=== PATIENT | female | born 1960 | race Caucasian/White ===

== ENCOUNTER → 2016-12-12 | Outpatient (CLI) | payer MEDICARE ==
[~2016-12-12] MED LIST: ALBUTEROL-200 PUFFS/ IH; CALTRATE 600 +1 TA1 PO; CALTRATE 600+D1 TAB PO; CARAFATE 1GM TAB1 GM PO; CARAFATE1 GM PO; CENTRUM SILVER1 TA2 PO; CENTRUM SILVER1 TAB PO; NAPROSYN 500MG500 MG PO; OXYGEN4 IH; PRAVACHOL40 MG PO; PREDNICOT10 MG PO; PREDNISONE 10MG10 MG PO; PREVACID 30MG C30 M1 PO; PRILOSEC20 M1 PO; PROBIOTIC FORMU1 CA2 PO; SPIRIVA HA1 PUFF/INH IH; SYMBICORT1 AE1 IH
== END ==
LOC: RT 11-17 10:00
DX: J43.9 Emphysema, unspecified (principal)

== ENCOUNTER 2017-02-09 19:22 | Inpatient (IN) | payer MEDICARE ==
[~2017-02-09] VITALS: Ht 149.9 cm; Wt 57.8 kg
[2017-02-09 19:22] VITALS: BP 127/76
[~2017-02-09 19:22] MED LIST changes: -OXYGEN4 IH; -PRAVACHOL40 MG PO
[2017-02-09] MEDS ORDERED: PRAVACHOL40 MG PO (19:31)
[2017-02-09 19:49] LABS: LYMPH # 1.9 K/mm3 (0.7-4.5); LYMPH % 23.3 % (10-50.0)
--- NOTE | 2017-02-09 20:11 | Emergency Room Report ---
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 N Clinical Suspician of Infection? N Mental Status: 1 - Regular (Normal Baseline) Sepsis Risk:Low Sepsis Risk Have you (or family members/close friends) recently traveled outside the [place]? N If Yes, where/when: Have you had exposure to infectious disease within the past month? N TB? Other? Specify: Source patient, RN notes reviewed, family, EMS, old records Exam Limitations no limitations Comment pt with episodes of feeling faint with nausea and diaphoresis and had heartburn type pain - pt with 2 episodes - no known heart disease - no melena Cardiac Chest Pain Chest pain indicative of cardiac Yes Timing/Duration 1-3 hours, gone now Severity/Quality moderate, indigestion Location epigastric Chest Pain Radiation no radiation Activities at Onset light activity Nitro Today/Relief no nitro taken today Aspirin Treatment Today 325 mg x 1, provided by ED Beta bill treatment today no beta bill taken Cardiac risk factors + family history Prior Workup/Intervention no prior cardiac workup Timing/Duration this evening Severity moderate ALLERGIES Coded Allergies: amoxicillin (Intermediate, I-HIVES 12/12/16) Home Medications Reported Medications BUDESONIDE/FORMOTEROL FUMARATE (Symbicort 160-4.5 Mcg Inhaler) 2 PUFFS IH BID #1 INH Tiotropium [place] (Spiriva) 1 PUFF IH DAILY OMEPRAZOLE MAGNESIUM (Prilosec 20MG) 40 MG PO DAILY Sucralfate (Carafate Tab) 1 GM PO BID Albuterol (Albuterol-Hfa Inhaler) 2 PUFF IH QID Multivitamin, Minerals, And (Centrum Silver) 1 TAB PO DAILY CALCIUM CARBONATE/VITAMIN D3 (Caltrate 600 + D Tablet) 1 TAB PO DAILY Probiotic Formula 1 CAP PO DAILY Pravastatin Sodium (Pravachol) 40 MG PO QHS #30 History Medical History General CAD? No Angina: No [place]: No Hypertension? No Hyperlipidemia? Yes CHF? No DVT? No PE? No COPD? Yes Asthma? No Anemia? No GERD? Yes Gastric ulcers? No GI Bleed? No Hernia? No Thyroid Problems? No Hypothyroidism? No CVA? No Seizures? No Diabetes? No Renal Insuffiency? No End Stage Renal Disease? No UTI? Yes Stones? No GB Disease: Yes Nephritic Syndrome? No Asplenia? No Hepatitis? No Sickle Cell Disease? No Arthritis? No Migraines? No Cataracts? No Glaucoma? No MRSA? No HIV? No TB? No Anxiety? No Depression? No Cancer? No More? 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 Respiratory denies cough, denies shortness of breath, denies wheezing Cardiovascular see HPI, chest pain, denies palpitations, denies syncope, other Gastrointestinal denies abdominal pain, denies diarrhea, denies vomiting Genitourinary denies: dysuria, frequency, hesitancy, hematuria. Musculoskeletal denies back pain, denies joint pain, denies joint swelling, denies neck pain Skin denies rash Psychiatric/Neurological denies headache, denies seizure Physical Exam Vital Signs Vital Signs Date Time Temp Pulse Resp B/P Pulse O2 O2 Flow FiO2 Ox Delivery Rate 02/09 2025 98.4 91 18 136/90 96 02/10 2024 90 20 136/90 97 02/09 2013 98.4 83 20 170/109 97 02/09 1922 98.4 83 20 127/76 97 - WBC >12,000 or <4,000 or 10% bands? 2 or more SIRS Criteria Met? B/P:136/90 MAP:93 Creatinine >2.0? UA output<0.5ml/kg/hr for 2 hrs? Platelet count >100,000? Lactate >2.0mmol/1? INR >1.2 or PTT > than 60 sec? Evidence of Organ Dysfunction? Provider documented clinical suspician of infection? N Sepsis Criteria Count: 1 Sepsis Risk: Low Sepsis Risk General Appearance no apparent distress Eye Exam - bilateral eye PERRL, bilateral eye EOMI Ear, Nose, Throat normal ENT inspection Neck supple Respiratory Status No: respiratory distress. Lung Sounds bilateral: lungs clear. 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 No Results/Orders Laboratory Tests 02/09/171940: Sodium 140, Potassium 3.9, Chloride 102, Carbon Dioxide 32, BUN 11, Creatinine 0.9, Estimated Creat Clear 62, Estimated GFR (MDRD) 64, Glucose 113 H, Calcium 9.5, Total Bilirubin 0.5, AST 27, ALT 31, Alkaline Phosphatase 67, Creatine Kinase 188, CK-MB (CK-2) Rel Index 7.0 H, CK and CKMB Interp 13.2 *H, Troponin I 1.00 H, Total Protein 7.4, Albumin 3.7, Globulin 3.7 H, Albumin/Globulin Ratio 1.0 L, WBC 8.3, RBC 4.88, Hgb 15.0, Hct 44.7, MCV 91.6, RDW 13.1, Plt Count 196, MPV 6.2 L, Gran % 72.0, Gran # 6.0, Lymphocytes % 23.3, Monocytes % 3.7, Eosinophils % 0.8, Basophils % 0.2, Lymphocytes # 1.9, Monocytes # 0.3, Eosinophils # 0.1, Basophils # 0.0, PUBS MCHC 33.6, MCH 30.8 Current Medication Orders Sig/Muriel Start time Last Medication Dose Route Stop Time Status Admin Enoxaparin Sodium 70 MG ONCE ONE 02/09 2100 AC SC 02/09 2101 Nitroglycerin 1 IN ONCE ONE 02/09 2100 AC TP 02/09 2101 Ticagrelor 180 MG ONCE ONE 02/09 2045 DC PO 02/09 2046 Aspirin 324 MG ONCE ONE 02/09 1945 DC 02/09 PO 02/09 Sodium Chloride 10 ML PRN PRN 02/09 1945 AC IV 02/11 1932 Aspirin 0 .STK-MED ONE 02/09 1937 DC .ROUTE Orders Procedure Date/time Status ELECTROCARDIOGRAM REQUEST 02/09 1934 Active CHEST(2 VIEWS-NOT PORTABLE) 02/09 1934 Active IV SALINE LOCK 02/09 1934 Active CBC WITH AUTO DIFF 02/09 1934 Complete CARDIAC ENZYMES 02/09 1934 Complete CHEM 12 PROFILE 02/09 1934 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 ST/Twave chgs XRAY/CT/US XRAY/CT/US XRAY chest XR interpretation by reviewed by me Xray Results normal/NAD Departure Departure Time of Disposition 2043 Disposition Still a Patient Clinical Impression Primary Impression: Non-STEMI (non-ST elevated myocardial infarction) Condition STABLE Referrals Jae Frazier MD (Family) discussed with dr frazier/dr cha ED Critical Care Critical Care No at 205
--- NOTE | 2017-02-09 20:11 | Emergency Room Report ---
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 N Clinical Suspician of Infection? N Mental Status: 1 - Regular (Normal Baseline) Sepsis Risk:Low Sepsis Risk Have you (or family members/close friends) recently traveled outside the [place]? N If Yes, where/when: Have you had exposure to infectious disease within the past month? N TB? Other? Specify: Source patient, RN notes reviewed, family, EMS, old records Exam Limitations no limitations Comment pt with episodes of feeling faint with nausea and diaphoresis and had heartburn type pain - pt with 2 episodes - no known heart disease - no melena Cardiac Chest Pain Chest pain indicative of cardiac Yes Timing/Duration 1-3 hours, gone now Severity/Quality moderate, indigestion Location epigastric Chest Pain Radiation no radiation Activities at Onset light activity Nitro Today/Relief no nitro taken today Aspirin Treatment Today 325 mg x 1, provided by ED Beta bill treatment today no beta bill taken Cardiac risk factors + family history Prior Workup/Intervention no prior cardiac workup Timing/Duration this evening Severity moderate ALLERGIES Coded Allergies: amoxicillin (Intermediate, I-HIVES 12/12/16) Home Medications Reported Medications BUDESONIDE/FORMOTEROL FUMARATE (Symbicort 160-4.5 Mcg Inhaler) 2 PUFFS IH BID #1 INH Tiotropium [place] (Spiriva) 1 PUFF IH DAILY OMEPRAZOLE MAGNESIUM (Prilosec 20MG) 40 MG PO DAILY Sucralfate (Carafate Tab) 1 GM PO BID Albuterol (Albuterol-Hfa Inhaler) 2 PUFF IH QID Multivitamin, Minerals, And (Centrum Silver) 1 TAB PO DAILY CALCIUM CARBONATE/VITAMIN D3 (Caltrate 600 + D Tablet) 1 TAB PO DAILY Probiotic Formula 1 CAP PO DAILY Pravastatin Sodium (Pravachol) 40 MG PO QHS #30 History Medical History General CAD? No Angina: No [place]: No Hypertension? No Hyperlipidemia? Yes CHF? No DVT? No PE? No COPD? Yes Asthma? No Anemia? No GERD? Yes Gastric ulcers? No GI Bleed? No Hernia? No Thyroid Problems? No Hypothyroidism? No CVA? No Seizures? No Diabetes? No Renal Insuffiency? No End Stage Renal Disease? No UTI? Yes Stones? No GB Disease: Yes Nephritic Syndrome? No Asplenia? No Hepatitis? No Sickle Cell Disease? No Arthritis? No Migraines? No Cataracts? No Glaucoma? No MRSA? No HIV? No TB? No Anxiety? No Depression? No Cancer? No More? 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 Respiratory denies cough, denies shortness of breath, denies wheezing Cardiovascular see HPI, chest pain, denies palpitations, denies syncope, other Gastrointestinal denies abdominal pain, denies diarrhea, denies vomiting Genitourinary denies: dysuria, frequency, hesitancy, hematuria. Musculoskeletal denies back pain, denies joint pain, denies joint swelling, denies neck pain Skin denies rash Psychiatric/Neurological denies headache, denies seizure Physical Exam Vital Signs Vital Signs Date Time Temp Pulse Resp B/P Pulse O2 O2 Flow FiO2 Ox Delivery Rate 02/09 2025 98.4 91 18 136/90 96 02/10 2024 90 20 136/90 97 02/09 2013 98.4 83 20 170/109 97 02/09 1922 98.4 83 20 127/76 97 - WBC >12,000 or <4,000 or 10% bands? 2 or more SIRS Criteria Met? B/P:136/90 MAP:93 Creatinine >2.0? UA output<0.5ml/kg/hr for 2 hrs? Platelet count >100,000? Lactate >2.0mmol/1? INR >1.2 or PTT > than 60 sec? Evidence of Organ Dysfunction? Provider documented clinical suspician of infection? N Sepsis Criteria Count: 1 Sepsis Risk: Low Sepsis Risk General Appearance no apparent distress Eye Exam - bilateral eye PERRL, bilateral eye EOMI Ear, Nose, Throat normal ENT inspection Neck supple Respiratory Status No: respiratory distress. Lung Sounds bilateral: lungs clear. 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 No Results/Orders Laboratory Tests 02/09/171940: Sodium 140, Potassium 3.9, Chloride 102, Carbon Dioxide 32, BUN 11, Creatinine 0.9, Estimated Creat Clear 62, Estimated GFR (MDRD) 64, Glucose 113 H, Calcium 9.5, Total Bilirubin 0.5, AST 27, ALT 31, Alkaline Phosphatase 67, Creatine Kinase 188, CK-MB (CK-2) Rel Index 7.0 H, CK and CKMB Interp 13.2 *H, Troponin I 1.00 H, Total Protein 7.4, Albumin 3.7, Globulin 3.7 H, Albumin/Globulin Ratio 1.0 L, WBC 8.3, RBC 4.88, Hgb 15.0, Hct 44.7, MCV 91.6, RDW 13.1, Plt Count 196, MPV 6.2 L, Gran % 72.0, Gran # 6.0, Lymphocytes % 23.3, Monocytes % 3.7, Eosinophils % 0.8, Basophils % 0.2, Lymphocytes # 1.9, Monocytes # 0.3, Eosinophils # 0.1, Basophils # 0.0, PUBS MCHC 33.6, MCH 30.8 Current Medication Orders Sig/Muriel Start time Last Medication Dose Route Stop Time Status Admin Enoxaparin Sodium 70 MG ONCE ONE 02/09 2100 AC SC 02/09 2101 Nitroglycerin 1 IN ONCE ONE 02/09 2100 AC TP 02/09 2101 Ticagrelor 180 MG ONCE ONE 02/09 2045 DC PO 02/09 2046 Aspirin 324 MG ONCE ONE 02/09 1945 DC 02/09 PO 02/09 Sodium Chloride 10 ML PRN PRN 02/09 1945 AC IV 02/11 1932 Aspirin 0 .STK-MED ONE 02/09 1937 DC .ROUTE Orders Procedure Date/time Status ELECTROCARDIOGRAM REQUEST 02/09 1934 Active CHEST(2 VIEWS-NOT PORTABLE) 02/09 1934 Active IV SALINE LOCK 02/09 1934 Active CBC WITH AUTO DIFF 02/09 1934 Complete CARDIAC ENZYMES 02/09 1934 Complete CHEM 12 PROFILE 02/09 1934 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 ST/Twave chgs XRAY/CT/US XRAY/CT/US XRAY chest XR interpretation by reviewed by me Xray Results normal/NAD Departure Departure Time of Disposition 2043 Disposition Still a Patient Clinical Impression Primary Impression: Non-STEMI (non-ST elevated myocardial infarction) Condition STABLE Referrals Jae Frazier MD (Family) discussed with dr frazier/dr cha ED Critical Care Critical Care No at 205
[2017-02-10] VITALS (9 sets, daily range): BP systolic 114–133; BP diastolic 63–90
--- NOTE | 2017-02-10 04:41 | PHARMACY CLINIC NOTE ---
Patient Demographics Patient Demographics Admission date: 02/09/17 Date: 02/10/17 Time: 0440 Allergies Coded Allergies: amoxicillin (Intermediate, I-HIVES 12/12/16) HEIGHT- FT: 4 IN: 11.00 K.805 VTE General Information Labs: Laboratory Tests 02/09 1941 Hematology Hgb (12.2 - 16.2 g/dL) 15.0 Hct (37.0 - 47.0 %) 44.7 Plt Count (142 - 424 K/mm3) 196 Disclaimer The following section includes nursing documentation that has been pulled in for pharmacy review. Patient's VTE score: 1 Patient's VTE Risk: VERY LOW RISK Clinical trial participant? No VTE prophylaxis [id number] VTE prophylaxis ordered? Yes Type of prophylaxis/treatment: RUBIO at 0440
[2017-02-10 07:22] LABS: HEMOGLOBIN 14.2 g/dL (12.2-16.2); LYMPH # 1.8 K/mm3 (0.7-4.5); LYMPH % 25.5 % (10-50.0)
--- NOTE | 2017-02-10 07:56 | CONSULT NOTE ---
Standard Demographics Patient Demo Date of Consultation: 02/10/17 Referring Provider: Rich Hardin MD Reason for Consultation: NSTEMI PRIMARY DIAGNOSIS: NON STEMI Problem list Problem list: 1. Chronic obstructive pulmonary disease A. History of tobacco use discontinued about 8 years ago. She did smoke for about 35 years. 2. History of reflux 3. Family history of coronary artery disease in her father in his 50s. 4. Hyperlipidemia History of present illness: History of present illness: 56-year-old white female with history of chronic obstructive pulmonary disease due to remote tobacco use was admitted to the emergency department last evening. Patient was on the treadmill yesterday afternoon about 4:00 when she developed sudden onset of heartburn type symptoms. She stopped the treadmill and decided to go home. At home she took some antacids including Tums and ranitidine without significant improvement. She did note, diaphoresis, near fainting feeling and severe abdominal cramping. After using the bathroom symptoms seemed to resolve. However they did return shortly thereafter which time the patient called to be transported to the emergency department for further evaluation. In the ER patient was noted to have elevated troponin. She was started on beta bill and nitroglycerin paste along with aspirin, Brilinta and Lovenox therapy. Patient has had no further symptoms overnight. Cardiology consulted for further recommendations. Past Medical History: General: Hypertension No CVA No Seizures No TB No COPD Yes Asthma No Diabetes No Angina No [place] No Hyperlipidemia Yes Urinary No Cancer No Rheumatic H.D. No Ulcers Yes MRSA No GB Disease Yes Past Surgical HX: Previous Surgery?Y GALLBLADDER Allergies Coded Allergies: amoxicillin (Intermediate, I-HIVES 12/12/16) Home medications: Reported Medications BUDESONIDE/FORMOTEROL FUMARATE (Symbicort 160-4.5 Mcg Inhaler) 2 PUFFS IH BID #1 INH Tiotropium [place] (Spiriva) 1 PUFF IH DAILY Device (Oxygen, WALL UNIT) 1 UNIT IH CONSTANT Sucralfate (Carafate Tab) 1 GM PO BID Multivitamin, Minerals, And (Centrum Silver) 1 TAB PO DAILY CALCIUM CARBONATE/VITAMIN D3 (Caltrate 600 + D Tablet) 1 TAB PO DAILY Probiotic Formula 1 CAP PO DAILY Pravastatin Sodium (Pravachol) 40 MG PO QHS #30 OMEPRAZOLE MAGNESIUM (Prilosec 20MG) 20 MG PO DAILY Albuterol (Albuterol-Hfa Inhaler) 2 PUFF IH BID PRN SOB Current Medications: Current Medications Fentanyl Citrate 25 MCG PRN PRN IV (UNV) Fentanyl Citrate 50 MCG PRN PRN IV (UNV) Flumazenil 0.2 MG PRN PRN IV (UNV) Heparin Sodium (Beef Lung) 5,000 UNITS PRN PRN IV (UNV) Heparin Sodium/Sodium Chloride 3,000 UNITS PRN PRN IV (UNV) Lidocaine HCl 20 ML ONCE ONE IJ (UNV) Midazolam HCl 1 MG PRN PRN IV (UNV) Midazolam HCl 1 MG PRN PRN IV (UNV) Naloxone HCl 0.4 MG [id number] PRN IV (UNV) Nitroglycerin 800 MCG PRN PRN IV (UNV) Verapamil HCl 5 MG PRN PRN IV (UNV) Nitroglycerin 0 .STK-MED ONE .ROUTE (DC) Nitroglycerin 1 IN Q8 TP Metoprolol Tartrate 25 MG Q6H6 PO Sodium Chloride 10 ML PRN PRN IV Pantoprazole Sodium 40 MG BID IV Acetaminophen 650 MG Q4HP PRN PO Ondansetron HCl 4 MG Q6HP PRN IV Sodium Chloride 1,000 ML .[id number] IV Enoxaparin Sodium 70 MG ONCE ONE SC (DC) Nitroglycerin 1 IN ONCE ONE TP (DC) Enoxaparin Sodium 0 .STK-MED ONE SC (DC) Nitroglycerin 0 .STK-MED ONE .ROUTE (DC) Ticagrelor 0 .STK-MED ONE PO (DC) Ticagrelor 180 MG ONCE ONE PO (DC) Aspirin 324 MG ONCE ONE PO (DC) Sodium Chloride 10 ML PRN PRN IV Aspirin 0 .STK-MED ONE .ROUTE (DC) Immunization HX DT/Tetanus Unknown Flu [id number] Pneumonia RECEIVED IN PAST TB Test in last year No Family history Family HX Family Hx Insignificant No Diabetes Yes CAD Yes Hypertension Yes Hyperlipidemia Yes Cancer Yes TB No Social Hx: Smoking HX Tobacco No Type Cigarettes Packs/day 1 1/2 - 2 PACKS Alcohol Alcohol: No Hx of Drug Use Drug Use? No Review of systems: Constitutional see HPI. Respiratory see HPI, SOB with excertion. Cardiovascular see HPI, chest pain Gastrointestinal/Abdominal see HPI, abdominal pain Genitourinary No: no symptoms reported. Musculoskeletal No: no symptoms reported. Neurological No: no symptoms reported. Exam: Admission Vital Signs: 1ST Vital Signs Result Date Time Pulse Ox 97 02/09 1922 B/P 127/76 02/09 1922 Temp 98.4 02/09 1922 Pulse 83 02/09 1922 Resp 20 02/09 1922 O2 Delivery ROOM AIR 02/10 9 Last Vital Signs: Vital Signs Result Date Time Pulse Ox 97 02/10 600 B/P 119/78 02/10 600 Temp 98.1 02/10 600 Pulse 84 02/10 600 Resp 20 02/10 600 O2 Delivery ROOM AIR 02/11 400 Exam General appearance: alert, awake, no acute distress Neck: no carotid bruit, no JVD Cardiovascular: regular rate & rhythm Respiratory: clear to auscultation ABD: soft, no tenderness Extremities: moves all, no peripheral edema Neuro: alert, intact, oriented Laboratory data: Laboratory Tests 02/10/17 0520: Sodium 143, Potassium 3.5, Chloride 107, Carbon Dioxide 28, BUN 9, Creatinine 0.7, Estimated Creat Clear 80, Estimated GFR (MDRD) 86, Glucose 105, Calcium 9.1 , WBC 7.0, RBC 4.69, Hgb 14.2, Hct 42.7, MCV 91.1, RDW 13.2, Plt Count 215, MPV 6.2 L, Gran % 68.6, Gran # 4.8, Lymphocytes % 25.5, Monocytes % 4.7, Eosinophils % 0.9, Basophils % 0.3, Lymphocytes # 1.8, Monocytes # 0.3, Eosinophils # 0.1, Basophils # 0.0, PUBS MCHC 33.3, MCH 30.3 02/09/171940: Triglycerides 126, Cholesterol 203 H, LDL Cholesterol 119.8, VLDL Cholesterol 25.2, HDL Cholesterol 58.0 02/09/171940: Sodium 140, Potassium 3.9, Chloride 102, Carbon Dioxide 32, BUN 11, Creatinine 0.9, Estimated Creat Clear 62, Estimated GFR (MDRD) 64, Glucose 113 H, Calcium 9.5, Total Bilirubin 0.5, AST 27, ALT 31, Alkaline Phosphatase 67, Creatine Kinase 188, CK-MB (CK-2) Rel Index 7.0 H, CK and CKMB Interp 13.2 *H, Troponin I 1.00 H, Total Protein 7.4, Albumin 3.7, Globulin 3.7 H, Albumin/Globulin Ratio 1.0 L, WBC 8.3, RBC 4.88, Hgb 15.0, Hct 44.7, MCV 91.6, RDW 13.1, Plt Count 196, MPV 6.2 L, Gran % 72.0, Gran # 6.0, Lymphocytes % 23.3, Monocytes % 3.7, Eosinophils % 0.8, Basophils % 0.2, Lymphocytes # 1.9, Monocytes # 0.3, Eosinophils # 0.1, Basophils # 0.0, PUBS MCHC 33.6, MCH 30.8 Plan: Assessment: 1. Non-STEMI. Electrocardiogram is sinus rhythm with septal infarct pattern, age undetermined. No acute ST elevation noted. 2. Hyperlipidemia with LDL of 120, change pravastatin to Lipitor. 3. Chronic obstructive pulmonary disease with remote tobacco use, oxygen when necessary. 4. Hypertensive on admission, currently controlled Recommendations: 1. Proceed with LEFT heart catheterization today. 2. Further recommendations to follow. at [id number]
--- NOTE | 2017-02-10 08:15 | RADIOLOGY REPORT PS360 ---
CHEST(2 VIEWS-NOT PORTABLE) COMPARISON: PA and lateral chest 01/20/2015 HISTORY: Epigastric pain and heartburn TECHNIQUE: PA and lateral chest FINDINGS: There is hyperexpansion lung landry with flattening and depression of the hemidiaphragms. The emphysematous changes are somewhat less pronounced than on the previous chest film however. There is no pneumonic infiltrate. Cardiac size is normal and the vascularity is normal. A small calcified left hilar nodes. IMPRESSION: Moderate COPD, no acute pathology noted
--- NOTE | 2017-02-10 08:17 | HISTORY AND PHYSICAL REPORT ---
History and Physical ([facility]CA) Date of admission: 02/09/17 Chief complaint: Gerd History: History of Present Illness: History of present illness: Ms Colorado is a 56-year-old white female with history of chronic obstructive pulmonary disease due to remote tobacco use and GERD who presented to the emergency department last evening. Patient was on the treadmill yesterday afternoon about 4:00 when she developed sudden onset of heartburn type symptoms. She stopped the treadmill and decided to go home. At home she took some antacids including Tums and ranitidine without significant improvement. She did note, diaphoresis, near fainting feeling and severe abdominal cramping. After using the bathroom symptoms seemed to resolve. However they did return shortly thereafter at which time the patient called to be transported to the emergency department for further evaluation. In the ER patient was noted to have elevated troponin. She was started on beta bill and nitroglycerin paste along with aspirin, Brilinta and Lovenox therapy. Patient has had no further symptoms overnight. Cardiology consulted for further recommendations. This AM patient is feeling better. She has had no further symptoms. She has been seen by cardiology and cardiac cath is planned today. Patient is a little anxious. Past Medical History: Medical History: CAD? No Angina: No [place]: No Hypertension? No Hyperlipidemia? Yes CHF? No DVT? No PE? No COPD? Yes Asthma? No Anemia? No GERD? Yes Gastric ulcers? Yes GI Bleed? No Hernia? No Thyroid Problems? No Hypothyroidism? No CVA? No Seizures? No Diabetes? No Renal Insuffiency? No UTI? Yes Stones? No GB Disease: Yes Nephritic Syndrome? No Asplenia? No Hepatitis? No Sickle Cell Disease? No Arthritis? No Migraines? No Cataracts? No Glaucoma? No MRSA? No HIV? No TB? No Anxiety? No Depression? No Cancer? No More? No Surgical history: Previous Surgery?Y GALLBLADDER Medications: Reported Medications BUDESONIDE/FORMOTEROL FUMARATE (Symbicort 160-4.5 Mcg Inhaler) 2 PUFFS IH BID #1 INH Tiotropium [place] (Spiriva) 1 PUFF IH DAILY Device (Oxygen, WALL UNIT) 1 UNIT IH CONSTANT Sucralfate (Carafate Tab) 1 GM PO BID Multivitamin, Minerals, And (Centrum Silver) 1 TAB PO DAILY CALCIUM CARBONATE/VITAMIN D3 (Caltrate 600 + D Tablet) 1 TAB PO DAILY Probiotic Formula 1 CAP PO DAILY Pravastatin Sodium (Pravachol) 40 MG PO QHS #30 OMEPRAZOLE MAGNESIUM (Prilosec 20MG) 20 MG PO DAILY Albuterol (Albuterol-Hfa Inhaler) 2 PUFF IH BID PRN SOB Allergies: Coded Allergies: amoxicillin (Intermediate, I-HIVES 12/12/16) Family History: Family history: Postive for: CAD, cancer, gall bladder disease. Social History: Smoking Hx Tobacco: No Smoker: Former Smoker Type: Cigarettes Packs/day: 1 1/2 - 2 Packs Are you exposed to second hand No Alcohol: Alcohol: No Hx of Drug Use: Drug Use? No Patient's support system is: excellent Review of Systems: ENT No: ear ache, sore throat. Cardiovascular Positive for: chest pain. No: edema, palpitations. Respiratory Positive for: shortness of air. No: hemoptysis, non-productive, wheezing. GI Positive for: GERD, abdominal pain, nausea. No: constipation, diarrhea, hematemeis, hematochezia, melena, vomitting. (female) No: hematuria. Neurological Positive for: dizziness, weakness. No: confusion, headache, seizure, syncope. Musculoskeletal No: extremity pain, joint pain, joint swelling. Physical Exam: Vital signs: 1ST Vital Signs Result Date Time Pulse Ox 97 02/09 1922 B/P 127/76 02/09 1922 Temp 98.4 02/09 1922 Pulse 83 02/09 1922 Resp 20 02/09 1922 O2 Delivery ROOM AIR 02/10 0009 Exam: General appearance: alert, awake, no acute distress, well-developed, well- nourished Eyes: anicteric, PERRLA ENT: mucous membranes moist Neck: no carotid bruit, full range of motion, lymphadenopathy (absent), thyroid (normal) Cardiovascular: regular rate & rhythm Respiratory: clear to auscultation (bilat anterior and posterior) ABD: non-distended, soft, no tenderness, no guarding, bowel sounds present Extremities: full range of motion, no peripheral edema, pedal pulses (present ), no calf tenderness Skin: dry, warm Neuro: alert, oriented, speech clear Lab data: Labs: Laboratory Tests 02/10/17 0520: Sodium 143, Potassium 3.5, Chloride 107, Carbon Dioxide 28, BUN 9, Creatinine 0.7, Estimated Creat Clear 80, Estimated GFR (MDRD) 86, Glucose 105, Calcium 9.1 , WBC 7.0, RBC 4.69, Hgb 14.2, Hct 42.7, MCV 91.1, RDW 13.2, Plt Count 215, MPV 6.2 L, Gran % 68.6, Gran # 4.8, Lymphocytes % 25.5, Monocytes % 4.7, Eosinophils % 0.9, Basophils % 0.3, Lymphocytes # 1.8, Monocytes # 0.3, Eosinophils # 0.1, Basophils # 0.0, PUBS MCHC 33.3, MCH 30.3 02/09/171940: Triglycerides 126, Cholesterol 203 H, LDL Cholesterol 119.8, VLDL Cholesterol 25.2, HDL Cholesterol 58.0 02/09/171940: Sodium 140, Potassium 3.9, Chloride 102, Carbon Dioxide 32, BUN 11, Creatinine 0.9, Estimated Creat Clear 62, Estimated GFR (MDRD) 64, Glucose 113 H, Calcium 9.5, Total Bilirubin 0.5, AST 27, ALT 31, Alkaline Phosphatase 67, Creatine Kinase 188, CK-MB (CK-2) Rel Index 7.0 H, CK and CKMB Interp 13.2 *H, Troponin I 1.00 H, Total Protein 7.4, Albumin 3.7, Globulin 3.7 H, Albumin/Globulin Ratio 1.0 L, WBC 8.3, RBC 4.88, Hgb 15.0, Hct 44.7, MCV 91.6, RDW 13.1, Plt Count 196, MPV 6.2 L, Gran % 72.0, Gran # 6.0, Lymphocytes % 23.3, Monocytes % 3.7, Eosinophils % 0.8, Basophils % 0.2, Lymphocytes # 1.9, Monocytes # 0.3, Eosinophils # 0.1, Basophils # 0.0, PUBS MCHC 33.6, MCH 30.8 Radiology results: Results: CXR 02/09/17 IMPRESSION: Moderate COPD, no acute pathology noted Diagnosis(es): 1. Non-STEMI (non-ST elevated myocardial infarction) 2. GERD (gastroesophageal reflux disease) 3. COPD exacerbation Plan: Cardiac cath scheduled for this AM with routine meds for NSTEMI. will restart home meds (Kimberly Guevara APRN) Date of admission: 02/09/17 Diagnosis(es): 1. Non-STEMI (non-ST elevated myocardial infarction) 2. GERD (gastroesophageal reflux disease) 3. COPD exacerbation Plan: Pt seen and examined. Concur with above assessment and plan. (Lashawn HANLEY,Jae Villanueva) at [phone]
[2017-02-10] MEDS ORDERED: OXYGEN4 IH (08:26)
[2017-02-10 11:54] LABS: URINE BILIRUBIN - DIPSTICK NEGATIVE (NEG); URINE BLOOD 3+ (NEG)
--- NOTE | 2017-02-10 16:08 | RADIOLOGY REPORT PS360 ---
CARDIAC CATHETERIZATION DATE OF CATHETERIZATION:02/10/2017 3:34 PM PROCEDURES: 1. Left heart catheterization 2. Left ventriculogram 3. Selective coronary angiogram 4. Drug-eluting stent deployment to the proximal mid distal right coronary artery 5. Drug-eluting stent deployment to the proximal LAD followed by angioplasty to the mid LAD INDICATION FOR TEST: 1. Acute non-ST elevation myocardial infarction 2. Coronary artery disease Informed consent was obtained prior to the procedure. COMPLICATIONS: Please see report ESTIMATED BLOOD LOSS: Less than 10 ml. TECHNIQUE: One percent lidocaine was used to anesthetize the right groin. The right femoral artery was accessed via the Seldinger technique. A 4-Montenegrin sheath was placed in the right femoral artery. Over a 3 J-wire a JL 4 JR4 catheter were used to perform left heart catheterization left ventriculogram and selective coronary angiogram. After the diagnostic angiogram 5000 units of heparin was administered intravenously and a 4 Montenegrin sheath was exchanged for a 6 Montenegrin sheath. Patient had artery received 180 mg of Brilinta in the emergency department at 11:00 PM last night. The JR4 catheter was used to intubate the right coronary artery and a choice PT wire was placed distally through the subtotal occlusion. A 2 mm x 20 mm balloon was deployed at 20 [place] in the mid and proximal segment. Following this a 2.5 x 30 mm resolute stent was deployed at 20 [place] and the mid to distal right coronary artery. An additional 3 mm x 26 mm resolute stent was placed proximal to this toward the ostium and deployed at 20 [place]. A 2.75 x 20 mm noncompliant balloon was then placed in the midportion and deployed at 20 [place] in order to post dilate. After the right coronary artery interventional procedure VALENTIN II flow had improved to VALENTIN III flow. An E BU 3.75 guide catheter was then used intubate the left main artery and a BMW wire was placed into the distal LAD. Multiple balloons were used to predilate the stenosis. Please refer to nursing notes for specifics. A 3.0 x 22 mm resolute stent was advanced after a 2.5 mm balloon was used to predilate the stenosis in the mid LAD. Despite this being predilated I was unable to advance the 22 mm balloon distally to the exact area of interest. My plan was to post dilate with a larger noncompliant balloon however when I pulled the balloon and stent back it was connected tightly to the stenotic area. The proximal portion of the stent was out of the left main artery therefore I deployed this at 20 [place] rather then pulling the balloon back and risking the stent falling off the balloon. Excellent angiographic results were obtained with significant reduction in the proximal portion of the stenosis however an additional 12 to 15 mm area still required further reduction. For the next hour and a half multiple balloons were used. Ultimately I was able to get a 3 mm noncompliant balloon into the mid LAD with the assistance of a guideliner and deployed at 20 [place] for 1 minute. Despite this I could still not get the lesion to reduce. In the distal segment lesion developed and it appeared as though the stenosis had significantly worsened in the mid segment. I was able to get a 2.5 x 12 mm noncompliant balloon and deployed the balloon for 1 minute trying to tack back the either dissection or stenosis and/or thrombus. VALENTIN-3 flow was always maintained. After multiple attempts I a choice PT extra-support wire was exchanged and placed distally. Additional balloons were used to predilate the stenosis with attempts to advance the guideliner beyond the proximal segment of the stent and allow for additional stenting of the mid segment. After 2 hours of trying to reduce this porcelain artery and eventually felt the patient would be better served [facility] where either Rotablator or laser atherectomy could be performed in order to reduce that mid segment. I spoke with Dr. All Wilson and we elected to leave the choice PT extra-support wire in place and transport patient to [facility] for Rotablator this afternoon. Patient had an ACT of 282 therefore an additional 2000 units of heparin was administered. 10 minutes later the ACT was 338. Just prior to the ambulance arriving an additional 2000 units of heparin was administered which should put the ACT over 400. The EBU catheter and choice PT wire was placed in a sterile bag taped to patient's thigh and she was transported via ambulance directly to the [facility] ANGIOGRAPHIC RESULTS: 1. The left main artery normal 2. The left anterior descending artery has a proximal concentric 80-90% stenosis followed by an additional 70% mid vessel stenosis. The first diagonal artery has a proximal 90% stenosis and is a 2 mm vessel 3. The circumflex artery is a dominant vessel and has proximal 30% stenoses. The first obtuse marginal artery has a proximal 60-70% stenosis while the second obtuse marginal artery has a long proximal to mid vessel 40% stenosis 4. The right coronary artery is a nondominant yet still large 3 mm vessel that has a proximal 99% stenosis mid vessel 99% stenosis and additional 90% stenosis. VALENTIN II flow is present down the vessel. Following the revascularization right coronary artery is widely patent with VALENTIN-3 flow 5. The DIAZ ventriculogram reveals normal 65% 6. The left ventricular end-diastolic pressure 10 mmHg IMPRESSION: 1. Critical coronary artery disease as described above 2. Successful revascularization of the subtotally occluded large nondominant right coronary artery critical disease reduced to 0% with 2 drug-eluting stents postdilated as described above 3. Severe disease in the proximal LAD 4. Successful stenting of the proximal LAD with incomplete stenting of the porcelain mid LAD due to extensive calcification and significant noncompliance 5. Normal ejection fraction 6. Normal left ventricular end-diastolic pressure PLAN: 1. Patient was loaded on Brilinta 180 mg last night however did not receive a 90 mg of Brilinta today. This will need to be continued on a twice a day schedule however will defer to [facility] 2. Patient is going directly to the [facility] in the care of Dr. All Wilson with anticipated Rotablator of the proximal to mid LAD versus possible surgical revascularization 3. Risk factor modification
--- NOTE | 2017-02-10 17:25 | RADIOLOGY REPORT PS360 ---
PROCEDURE: 2-D M-mode and color Doppler study INDICATIONS FOR THE TEST: Chest pain COPD+ Heart Murmur Tobacco Smoking Palpitations Fatigue Syncope Edema Hypertension Diabetes Mellitus Rheumatic Fever SOB FITZGERALD Obesity Hyperlipidemia Family History HD Additional History PATIENT INFORMATION HEIGHT: 59 WEIGHT:128 GENDER: Female B/P: 2-D/M-MODE INTERPRETATION: 2-D MEASUREMENTS OBSERVED VALUES IN CMS Right Ventricular Dimension (RVDd) 1.4 Interventricular Septum (Thickness)(IV 1.0 Left Ventricular Internal Dimensions(LVIDd) 4.0 Left Ventricular Posterior Wall (Thickness)(LVPWd) 0.7 Aortic Root 2.9 Aortic Cusp Separation 1.8 Left Atrial Dimensions (LAD) 3.1 2D 1. Left atrium is normal size, left ventricle is normal size, there is no concentric left ventricular hypertrophy, visually estimated ejection fraction 55% no obvious regional wall motion abnormality, endocardial surfaces are somewhat poorly visualized. 2. The right atrium and right ventricle are normal size and contractility. 3. The aortic valve is minimally thickened and calcified. 4. The mitral and tricuspid valve is structurally normal. 5. The pulmonic valve is not well visualized. 6. There is anterior echo free space seen. DOPPLER INTERROGATION: Doppler interrogation of the aortic mitral and tricuspid valvular presence of mild mitral and tricuspid regurgitation, tricuspid regurgitant jet velocity is insufficient for calculation of the right ventricular systolic pressure, grade 1 diastolic dysfunction seen without Doppler evidence of raised left atrial pressure. CONCLUSION: 1. Normal left ventricular size, visually estimated ejection fraction 55% with no obvious regional wall motion abnormality as described above, endocardial surfaces are somewhat poorly visualized. Grade 1 diastolic dysfunction without tissue Doppler evidence of raised left atrial pressure. 2. Mild mitral and tricuspid regurgitation. 3. Anterior echo free space seen.
--- NOTE | 2017-03-04 08:30 | DISCHARGE SUMMARY STANDARD ---
Discharge Summary (FCA2) Date of admission: 02/09/17 Date of discharge: 02/10/17 Problem List: 1. Non-STEMI (non-ST elevated myocardial infarction) 2. GERD (gastroesophageal reflux disease) 3. COPD exacerbation History of present illness: Ms Colorado is a 56-year-old white female with history of chronic obstructive pulmonary disease due to remote tobacco use and GERD who presented to the emergency department. Patient was on the treadmill when she developed sudden onset of heartburn type symptoms. She stopped the treadmill and decided to go home. At home she took some antacids including Tums and ranitidine without significant improvement. She did note, diaphoresis, near fainting feeling and severe abdominal cramping. After using the bathroom, symptoms seemed to resolve. however they did return shortly thereafter at which time the patient called to be transported to the emergency department for further evaluation. In the ER patient was noted to have an elevated troponin. She was started on a beta bill and nitroglycerin paste along with aspirin, Brilinta and Lovenox therapy. Patient had no further symptoms overnight. Cardiology was consulted for further recommendations. Exam on admission: General appearance: alert, awake, no acute distress, well-developed, well- nourished Eyes: anicteric, PERRLA ENT: mucous membranes moist Neck: no carotid bruit, full range of motion, lymphadenopathy (absent), thyroid (normal) Cardiovascular: regular rate & rhythm Respiratory: clear to auscultation (bilat anterior and posterior) ABD: non-distended, soft, no tenderness, no guarding, bowel sounds present Extremities: full range of motion, no peripheral edema, pedal pulses (present ), no calf tenderness Skin: dry, warm Neuro: alert, oriented, speech clear Hospital Course: The patient underwent a heart cath. The patient had critical coronary artery disease and there was successful revascularization of the subtotally occluded large nondominant RIGHT coronary artery with 2 drug-eluting stents. There was severe disease in the proximal left anterior descending but stenting was incomplete due to extensive calcification and significant noncompliance. The patient was transferred under the care of Dr. All Wilson with anticipated Rotablator of the proximal to mid left anterior descending versus possible surgical revascularization. Disposition: F/U with: David Farias MD Follow up: 7 DAYS Activity: Cont Current activity Diet: Continue same diet Discharge to: ACUTE FACILITY TRANSFER Specify acute transfer facility: [facility] at [id number]
== END 2017-02-10 15:30 | disposition short-term general hospital (02) | DRG 247 ==
LOC: ER 19:22 → ICU 20:56 → ER 20:56 → 2ND 20:56 → ICU 21:38 → 2ND 21:38 → ICU 21:38 → 2ND 02-10 19:35
PROVIDERS: Emergency Medicine; Family Medicine; Internal Medicine
PROC: 4A023N7 Measurement of Cardiac Sampling and Pressure, Left Heart, Percutaneous Approach (ICD-10-PCS; principal; 2017-02-10 11:00)
PROC: B2151ZZ Fluoroscopy of Left Heart using Low Osmolar Contrast (ICD-10-PCS; principal; 2017-02-10 11:00)
PROC: 027135Z Dilation of Coronary Artery, Two Arteries with Two Drug-eluting Intraluminal Devices, Percutaneous Approach (ICD-10-PCS; principal; 2017-02-10 11:00)
PROC: B2111ZZ Fluoroscopy of Multiple Coronary Arteries using Low Osmolar Contrast (ICD-10-PCS; principal; 2017-02-10 11:00)
DX: I21.4 Non-ST elevation (NSTEMI) myocardial infarction (principal); J44.1 Chronic obstructive pulmonary disease with (acute) exacerbation; Z99.81 Dependence on supplemental oxygen; I25.10 Atherosclerotic heart disease of native coronary artery without angina pectoris; Z87.891 Personal history of nicotine dependence; Z82.49 Family history of ischemic heart disease and other diseases of the circulatory system; K21.9 Gastro-esophageal reflux disease without esophagitis; I10 Essential (primary) hypertension
CPT/HCPCS: C1725; C1769; C1876; C1894; J1644; Q9967

== ENCOUNTER → 2017-06-29 | Outpatient (CLI) | payer MEDICARE ==
[~2017-06-29] MED LIST changes: +CLOPIDOGREL75 M2 PO; +OXYGEN4 IH; +PRAVACHOL40 MG PO; +VALSARTAN80 MG PO
[2017-06-29 17:23] LABS: BUN 14 mg/dL (7-18)
[2017-06-29 17:37] LABS: BILIRUBIN, INDIRECT 0.42 mg/dL (0-0.9)
[2017-06-29 18:04] LABS: GFR (ESTIMATED) 74 ML/MIN (59-)
== END ==
LOC: LAB 14:51
PROVIDERS: Family Medicine; Internal Medicine
DX: I25.5 Ischemic cardiomyopathy (principal); E78.2 Mixed hyperlipidemia; E61.1 Iron deficiency; I50.30 Unspecified diastolic (congestive) heart failure